=== PATIENT | female | born 1995 | race Caucasian/White ===

== ENCOUNTER 2016-09-10 19:01 | Emergency (ER) | payer OTHER ==
[2016-09-10 19:26] VITALS: BP 105/62
== END 2016-09-10 20:30 | disposition left against medical advice (07) ==
LOC: UCCORT 19:01
DX: G50.1 Atypical facial pain (principal); Z53.21 Procedure and treatment not carried out due to patient leaving prior to being seen by health care provider

== ENCOUNTER 2017-06-27 09:18 | Emergency (ER) | payer OTHER ==
[2017-06-27 09:45] VITALS: BP 136/84
--- NOTE | 2017-06-27 10:07 | UC ---
UC General HPI - HPI Summary HPI Summary: 22 year old female with trigeminal neuralgia. states has trigeminal neuralgia, started having severe right sided forehead pain. States went to ER about a week ago, had a CT and spinal tap, was given benadryl and reglan. Pain has become increasingly worse. taking motrin and gabapentin for this . to see neuro in 2 days but pain worsening and here for some relief. had medrol during and it offered temporary relief [ End ] - History of Current Complaint Chief Complaint: UCHeadache Stated Complaint: FACIAL PAIN Time Seen by Provider: 06/27/17 09:50 Hx Obtained From: Patient Hx Last Menstrual Period: current, nexplanon Timing: Constant Onset Severity: Severe Pain Intensity: 10 - Allergy/Home Medications Allergies/Adverse Reactions: Allergies Allergy/AdvReac Type Severity Reaction Status Date / Time Penicillins Allergy Unknown Verified 06/27/17 09:42 Reaction Details Home Medications: Home Medications Gabapentin CAP(*) [Neurontin 300 CAP(*)] 300 mg PO TID 06/27/17 [History Confirmed 06/27/17] Sertraline* [Zoloft*] 100 mg PO DAILY 06/27/17 [History Confirmed 06/27/17] PMH/Surg Hx/FS Hx/Imm Hx Previously Healthy: Yes - Surgical History Surgical History: Yes Surgery Procedure, Year, and Place: Left elbow surgery - Family History Known Family History: Positive: None - Social History Lives: With Family Alcohol Use: Occasionally Substance Use Type: None Smoking Status (MU): Never Smoked Tobacco Review of Systems Constitutional: Negative Skin: Negative Eyes: Negative ENT: Negative Respiratory: Negative Cardiovascular: Negative Gastrointestinal: Negative Genitourinary: Negative Motor: Negative Neurovascular: Negative Musculoskeletal: Negative Neurological: Paresthesia Psychological: Negative All Other Systems Reviewed And Are Negative: Yes Physical Exam Triage Information Reviewed: Yes Appearance: Well-Appearing, Pain Distress - moderate and tearful Vital Signs: Initial Vital Signs Temp 98 F 06/27/17 09:39 Pulse 91 06/27/17 09:39 Resp 18 06/27/17 09:39 BP 136/84 06/27/17 09:39 Pulse Ox 99 06/27/17 09:39 Vital Signs Reviewed: Yes Eye Exam: Normal ENT Exam: Normal Neck exam: Normal Respiratory Exam: Normal Cardiovascular Exam: Normal Musculoskeletal Exam: Normal Neurological Exam: Normal Psychological Exam: Normal Skin Exam: Normal Course/Dx - Course Course Of Treatment: Reference #: [id number]. try relief with medrol and muscle relaxer aware not to drive on it and be careful with taking with gabapentin but there for mild relief no indication for concerns. keep neuro appt - Differential Dx - Multi-Symptom Provider Diagnoses: Trigeminal neuralgia Discharge - Discharge Plan Condition: Good Disposition: HOME Prescriptions: methylPREDNISolone [Medrol Dosepak 4 MG*] 0 mg PO .SEE ROXY INSTRUCTION #1 tab tiZANidine TAB* [Zanaflex TAB*] 2 mg PO BEDTIME #7 tab Patient Education Materials: Trigeminal Neuralgia (ED) Referrals: LAVON Paz [Primary Care Provider] - 3 Days (keep neurology appt )
== END 2017-06-27 10:22 | disposition home or self-care (01) ==
LOC: UCCORT 09:18
DX: G50.0 Trigeminal neuralgia (principal); Z88.0 Allergy status to penicillin
CPT/HCPCS: 99212; G0463

== ENCOUNTER 2017-10-04 11:01 | Emergency (ER) | payer BC, OTHER ==
[2017-10-04 11:17] VITALS: BP 102/59
--- NOTE | 2017-10-04 11:41 | ED ---
Throat Pain/Nasal Congestion - HPI Summary HPI Summary: 22 yr old female with the complaint of sore throat, runny nose, bilateral ear pain. Onset two days ago. Denies drooling. She does have post nasal drip. No other complaints. - History of Current Complaint Chief Complaint: UCGeneralIllness Time Seen by Provider: 10/04/17 11:10 - Allergies/Home Medications Allergies/Adverse Reactions: Allergies Allergy/AdvReac Type Severity Reaction Status Date / Time Penicillins Allergy Unknown Verified 10/04/17 11:12 Reaction Details Home Medications: Home Medications busPIRone TAB* [Buspar TAB*] 10 mg PO TID 10/04/17 [History Confirmed 10/04/17] carBAMazepine TAB(*) [TEGretol TAB(*)] 200 mg PO TID 10/04/17 [History Confirmed 10/04/17] PMH/Surg Hx/FS Hx/Imm Hx Respiratory History: Reports: Hx Asthma - Surgical History Surgery Procedure, Year, and Place: Left elbow surgery. tubes tied Infectious Disease History: No Infectious Disease History: Denies: Traveled Outside the [place] in Last 30 Days - Family History Known Family History: Positive: None - Social History Alcohol Use: Occasionally Substance Use Type: Reports: None Smoking Status (MU): Former Smoker Review of Systems Positive: Sore Throat, Ear Ache, Nasal Discharge All Other Systems Reviewed And Are Negative: Yes Physical Exam Triage Information Reviewed: Yes Vital Signs On Initial Exam: Initial Vitals Temp Pulse Resp BP Pulse Ox 97.9 F 95 15 102/59 99 10/04/17 11:09 10/04/17 11:09 10/04/17 11:09 10/04/17 11:09 10/04/17 11:09 Vital Signs Reviewed: Yes Appearance: Positive: Well-Appearing, No Pain Distress Skin: Positive: Warm, Skin Color Reflects Adequate Perfusion Head/Face: Positive: Normal Head/Face Inspection Eyes: Positive: EOMI ENT: Positive: Pharyngeal erythema, Nasal congestion, Nasal drainage, TMs normal , Uvula midline. Negative: Muffled voice, Hoarse voice Neck: Positive: Nontender Respiratory/Lung Sounds: Positive: Clear to Auscultation, Breath Sounds Present Cardiovascular: Positive: RRR. Negative: Murmur Abdomen Description: Positive: Nontender Musculoskeletal: Positive: Strength/ROM Intact Neurological: Positive: Sensory/Motor Intact, Alert, Oriented to Person Place, Time, CN Intact II-III Psychiatric: Positive: Normal - Cedric Coma Scale Best Eye Response: 4 - Spontaneous Best Motor Response: 6 - Obeys Commands Best Verbal Response: 5 - Oriented Coma Scale Total: 15 Diagnostics - Vital Signs Vital Signs Temp Pulse Resp BP Pulse Ox 10/04/17 11:09 97.9 F 95 15 102/59 99 - Laboratory Lab Results: Lab Results 10/04/17 Range/Units 11:20 Group A Strep Rapid Negative (Negative) Lab Statement: Any lab studies that have been ordered have been reviewed, and results considered in the medical decision making process. EENT Course/Dx - Course Course Of Treatment: 22 yr old female with URI. Plan DC home. Work note given. - Diagnoses Provider Diagnoses: Upper respiratory infection Discharge - Sign-Out/Discharge Documenting (check all that apply): Discharge/Admit/Transfer - Discharge Plan Condition: Good Disposition: HOME Patient Education Materials: Upper Respiratory Infection (ED) Forms: *Work Release Referrals: LAVON Paz [Primary Care Provider] - 2 Days - Billing Disposition and Condition Condition: GOOD Disposition: Home
== END 2017-10-04 11:48 | disposition home or self-care (01) ==
LOC: UCCORT 11:01
DX: J06.9 Acute upper respiratory infection, unspecified (principal); H92.03 Otalgia, bilateral; J45.909 Unspecified asthma, uncomplicated; Z87.891 Personal history of nicotine dependence; Z88.0 Allergy status to penicillin
CPT/HCPCS: 87651; 99211; G0463